=== PATIENT | female | born 1995 | race Caucasian/White ===

== ENCOUNTER 2022-01-15 11:20 | Emergency (ER) | payer MEDICAID ==
[~2022-01-15] VITALS: Ht 160 cm; Wt 69.0 kg
[2022-01-15] MEDS ORDERED: SODIUM CHLORIDE 0.9% 1,000 ML IV ONE (12:15)
[2022-01-15] MEDS ORDERED: PREDNISONE 20MG TABLET PO SCH (12:15)
[2022-01-15 12:42] LABS: BASOPHILS % 0.2 % (0.0-2.0); EOSINOPHILS % 0.3 % (0.0-5.0); HEMOGLOBIN. 13.4 g/dL (12.0-16.0); LYMPHOCYTES % 20.6 % (20.0-50.0); MEAN CORPUSCULAR HEMOGLOBIN 26.4 pg (28.0-32.0); MEAN CORPUSCULAR VOLUME 78.5 fL (81.0-99.0); MONOCYTES % 5.6 % (2.0-8.0); NEUTROPHILS % 73.3 % (40.0-76.0); PLATELET 272 x1000/uL (130-400); RED BLOOD CELL COUNT 5.09 mill/uL (4.2-5.4); RED CELL DISTRIBUTION WIDTH 14.4 % (11.6-14.6)
[2022-01-15 12:44] LABS: CHLORIDE 104 mEq/L (98-107)
[2022-01-15 12:48] LABS: HCG SCREEN NEGATIVE
[2022-01-15 14:00] VITALS: BP 138/81
[2022-01-15] MEDS ORDERED: METF-414 MT (15:11)
[2022-01-15] MEDS ORDERED: P50 MT (15:11)
== END 2022-01-15 15:40 | disposition home or self-care (01) ==
LOC: ER 11:20
DX: L50.9 Urticaria, unspecified (principal); E11.9 Type 2 diabetes mellitus without complications; R00.0 Tachycardia, unspecified
CPT/HCPCS: 36415; 80053; 82962; 84703; 85025; 93005; 96360; 96361; 99284; J7030; J7512

== ENCOUNTER 2022-01-18 15:28 | Emergency (ER) | payer MEDICAID ==
[~2022-01-18] VITALS: Ht 160 cm; Wt 69.0 kg
[~2022-01-18 15:28] MED LIST: METF-414 MT; P50 MT
[2022-01-18 15:40] VITALS: BP 153/90
[2022-01-18] MEDS ORDERED: P50 MT (16:49)
[2022-01-18] MEDS ORDERED: HYDR50TA55 MT (16:49)
[2022-01-18] MEDS ORDERED: LORA10TA7 MT (16:49)
== END 2022-01-18 17:00 | disposition home or self-care (01) ==
LOC: ER 15:38
DX: L50.9 Urticaria, unspecified (principal); R00.0 Tachycardia, unspecified; Z98.890 Other specified postprocedural states
CPT/HCPCS: 99281